=== PATIENT | male | born 1985 | race African-American/Black ===

== ENCOUNTER 2017-10-16 17:14 | Emergency (ER) | payer OTHER ==
[~2017-10-16] VITALS: Ht 177.8 cm; Wt 102.0 kg
[2017-10-16] MEDS ORDERED: KETOROLAC TROMETHAMINE 60 MG/2 ML VIAL IM ONE (19:15)
[2017-10-16 20:15] VITALS: BP 142/65
[2017-10-16 20:39] LABS: INFLUENZA TYPE A NEGATIVE FOR TYPE A (NEGATIVE); INFLUENZA TYPE B NEGATIVE FOR TYPE B (NEGATIVE)
[2017-10-16] MEDS ORDERED: OSELTAMIVIR PHOSPHATE 75 MG CAPSULE PO ONE (20:45)
== END 2017-10-16 20:54 | disposition home or self-care (01) ==
LOC: EMS 17:17
DX: J11.1 Influenza due to unidentified influenza virus with other respiratory manifestations (principal); F17.210 Nicotine dependence, cigarettes, uncomplicated; Z88.0 Allergy status to penicillin; Z71.6 Tobacco abuse counseling
CPT/HCPCS: 71046; 87804; 96372; 99285; 99406; J1885

== ENCOUNTER 2018-06-25 08:30 | Emergency (ER) | payer OTHER ==
[~2018-06-25] VITALS: Ht 177.8 cm; Wt 100.0 kg
[2018-06-25] MEDS ORDERED: INSNOV SQ (08:42)
[2018-06-25 08:54] VITALS: BP 148/109
[2018-06-25] MEDS ORDERED: PERTUSS(ACELL),DIPH,TET VAC/PF 0.5 ML VIAL IM ONE (09:45)
== END 2018-06-25 10:05 | disposition home or self-care (01) ==
LOC: EMS 08:31
DX: S31.813A Puncture wound without foreign body of right buttock, initial encounter (principal); Z88.0 Allergy status to penicillin; Z79.4 Long term (current) use of insulin; E11.9 Type 2 diabetes mellitus without complications; F17.210 Nicotine dependence, cigarettes, uncomplicated; F12.90 Cannabis use, unspecified, uncomplicated; R03.0 Elevated blood-pressure reading, without diagnosis of hypertension; W45.0XXA Nail entering through skin, initial encounter; Y93.89 Activity, other specified; Y92.89 Other specified places as the place of occurrence of the external cause; Y99.8 Other external cause status
CPT/HCPCS: 90471; 90715